=== PATIENT | female | born 1985 | race Caucasian/White ===

== ENCOUNTER → 2023-02-08 09:30 | Outpatient (BNVA) | payer BC, SELFPAY | PROVIDERS: Visit Provider Family Medicine | DX: R53.83 Other fatigue (principal) | CPT/HCPCS: 80053; 82306; 82607; 84443; 85025 ==

== ENCOUNTER → 2023-03-01 14:05 | Outpatient (BNVA) | payer BC, SELFPAY | PROVIDERS: Referring Provider Family Medicine; Visit Provider Nurse Practitioner Women's Health | DX: Z12.4 Encounter for screening for malignant neoplasm of cervix (principal) | CPT/HCPCS: 87624 ==

== ENCOUNTER 2023-03-14 13:54 | Outpatient (CLI) | payer BC, SELFPAY ==
--- NOTE | 2023-03-14 14:10 | MM_ITS ---
WS: [id number] BILATERAL 3D TOMOSYNTHESIS DIGITAL DIAGNOSTIC MAMMOGRAPHY WITH CAD CLINICAL INFORMATION: N63.20 - Unspecified lump in the left breast, unspecified... HISTORY: Palpable lumps LEFT breast COMPARISON: None. TECHNIQUE: Bilateral CC, MLO, and ML views. FINDINGS: The breasts are composed of heterogeneous fibroglandular density, which can limit the detection of sm all underlying mass lesions. Palpable markers LEFT breast upper-outer quadrant and near the 10:00 pos ition. Dense parenchymal tissue in the area of the palpable markers. Clustered calcifications RIGHT breast. Spot magnification views were obtained. Heterogeneous cluster calcifications are indeterminant. Recommend further evaluation with stereotactic guided biopsy. These are located in the upper inner quadrant RIGHT breast. Mid to posterior depth. Ultrasound LEFT breast is pending. RIGHT BREAST: TECHNIQUE: Ultrasound left breast focused area of concern. CLINICAL INFORMATION: N63.20 - Unspecified lump in the left breast, unspecified... FINDINGS: Ultrasound LEFT breast in the area of palpable concern 10:00 and 12:00 position. Small incidental cys t at the 12:00 position 1 cm from the nipple measuring 4 x 3 x 3 mm. This has a benign appearance. No other suspicious findings in the area of palpable concern. LEFT BREAST: MM/[place] [id number] IMPRESSION: BI-RADS 4 Suspicious Recommend further evaluation RIGHT breast calcifications with stereotactic do ded biopsy ULTRASOUND BREAST LEFT IMPRESSION: BI-RADS: 2-Benign FOLLOW UP: See Report RIGHT BREAST:
== END 2023-03-14 13:55 | disposition home or self-care (01) ==
PROVIDERS: Visit Provider Nurse Practitioner Women's Health
DX: N63.20 Unspecified lump in the left breast, unspecified quadrant (principal)
CPT/HCPCS: 76642; 77062; 87624; G0279

== ENCOUNTER → 2023-03-30 08:47 | Outpatient (BNVA) | payer BC, SELFPAY | PROVIDERS: Visit Provider Nurse Practitioner Women's Health | DX: R52 Pain, unspecified (principal) | CPT/HCPCS: 76830 ==

== ENCOUNTER → 2023-04-03 14:54 | Outpatient (BNVA) | payer BC, SELFPAY | PROVIDERS: PCP Family Medicine; Visit Provider Family Medicine | DX: R79.89 Other specified abnormal findings of blood chemistry (principal) | CPT/HCPCS: 82306 ==

== ENCOUNTER 2023-04-11 12:03 | Outpatient (CLI) | payer BC, SELFPAY ==
--- NOTE | 2023-04-11 13:00 | MM_ITS ---
WS: [id number] DIAGNOSTIC RIGHT DIGITAL TOMOSYNTHESIS MAMMOGRAPHY WITH CAD. HISTORY: Patient presents for stereotactic biopsy of the calcifications in the medial superior RIGHT breast. COMPARISON: 03/14/2023. Technique: Multiple breast views. Patient presents for stereotactic biopsy. The calcifications in the medial superior RIGHT breast are difficult to biopsy. There are large surrounding vessels which make the biopsy difficult. We attempte d numerous different access angles without success. With additional view these calcifications appear very lucent center and are probably benign. This is only a very small cluster of calcifications. Unable to perform stereotactic biopsy safely due to the large vessels in a similar location. Alternat yocasta evaluation includes needle localization and removal surgically or 6 month follow-up. As these gilmar cifications are likely benign consider six-month follow-up. MM/[place] [id number] IMPRESSION: BI-RADS: 3-Probably Benign FOLLOW UP: 6 Month Follow-up 1. Unsuccessful attempt at stereotactic biopsy of the calcifications in the RI GHT breast. Large surrounding vessels obscure the calcifications had make this an unsafe biopsy. 2. After additional imaging is calcifications do appear lucent centered and pr obably benign. 3. Consider six-month follow-up diagnostic imaging with magnification views of the RIGHT breast calcifications versus wire localization and surgical removal.
== END 2023-04-11 12:04 | disposition home or self-care (01) ==
PROVIDERS: PCP Family Medicine; Visit Provider Nurse Practitioner Women's Health
DX: R92.1 Mammographic calcification found on diagnostic imaging of breast (principal)
CPT/HCPCS: 19081; 77065

== ENCOUNTER 2023-06-14 13:59 | Emergency (ER) | payer BC, SELFPAY ==
[2023-06-14 14:04] VITALS: BP 124/74; PULSE 102; RESP 20; TEMP 36.6; O2SAT 99
--- NOTE | 2023-06-14 17:38 | ECG_ITS ---
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 Measurements Intervals Frost Rate: 69 P: 39 SC: 146 QRS: 70 QRSD: 77 T: 56 QT: 397 QTc: 427 Interpretive Statements SINUS RHYTHM NONSPECIFIC T-WAVE ABNORMALITY No previous ECG available for comparison Electronically Signed On 06-14-2023 20:55:27 CDT by Zuleika Johnston M.D. [id number]
--- NOTE | 2023-06-14 17:39 | XRR_ITS ---
PROCEDURE INFORMATION: Exam: XR Chest Exam date and time: 06/14/2023 5:43 PM Age: 37 years old Clinical indication: Pain; Chest pressure; Additional info: Chest pain TECHNIQUE: Imaging protocol: Radiologic exam of the chest. Views: 1 view. COMPARISON: CR XR chest 2V* [id number] 12/28/2016 4:43 PM FINDINGS: Lungs: No consolidation. Pleural spaces: No pleural effusion. No pneumothorax. Heart/Mediastinum: No cardiomegaly. Bones/joints: Unremarkable. XR/XR chest 1V portable [id number] IMPRESSION: 1. No acute abnormality demonstrated. 2. There is no interval change from the prior examination.
[2023-06-14 18:16] VITALS: BP 137/91; PULSE 73; RESP 17; O2SAT 100
--- NOTE | 2023-06-14 18:27 | ED_ITS ---
HPI - Chest Pain General: Chief Complaint: Chest Pain Stated Complaint: chest pain, sob Time Seen by Provider: 06/14/23 18:14 Source: patient Mode of arrival: ambulatory Limitations: no limitations History of Present Illness: 37-year-old female states she woke up at noon today with pain in the center of her chest. States been a pressure type pain she had some slight shortness of breath. She states it was worse earlier today its improving currently. She has no history of heart disease. She denies any vomiting or diarrhea she has had no cough or fever. Associated symptoms: Deny abdominal pain, dyspnea, fever(s), nausea or vomiting Review of Systems Const: Denies: fever(s), chills, body aches or change in appetite ENMT: Denies: throat pain or dental pain Card: Reports: chest pain Resp: Denies: dyspnea GI: Denies: abdominal pain, nausea, vomiting or diarrhea : Denies: dysuria Musc: Denies: neck pain or back pain Skin/Breast: Denies: rash Neuro: Denies: headache(s) PFSH ED PFSH: Medical History Dysmenorrhea suspected by symptoms; trialed Depo Lupron for 5-6 months; not much improvement and was expensive. Migraine with aura Surgical History History of 2 sections 2006-- due to Pre-E at term 2009-- repeat with tubal ligation at the same time History of tubal ligation (~2009) Family History Grandmother Breast cancer Great Maternal grandmother Other Cancer Cervical cancer Diabetes Denies family history of Colon cancer Ovarian cancer Chronic kidney disease (CKD) Hypertension Uterine cancer Thyroid disease Stroke Physical Exam Const: COMMON NORMALS: no acute distress, patient oriented x3 and healthy appearing HENMT: COMMON NORMALS: normocephalic and atraumatic HEAD & SCALP: normocephalic and atraumatic Neck/C-Spine: COMMON NORMALS: full ROM and supple Chest: COMMONS NORMALS: normal inspection of the chest and normal palpation of entire chest wall Resp: COMMON NORMALS: normal respiratory effort, No retractions, No use of accessory muscles and clear to auscultation bilaterally AUSCULTATION: clear to auscultation bilaterally Cardio: COMMON NORMALS: regular rate, regular rhythm and No murmurs present (Cardio) RATE: regular rate RHYTHM: regular rhythm GI: COMMON NORMALS: Normal to inspection, nondistended, normoactive bowel sounds present, Soft to palpation, non-tender and no masses PALPATION: Yes Soft to palpation Extremity: COMMON NORMALS: normal to inspection and full ROM Neuro: COMMON NORMALS: patient oriented x3, moves all extremities and no focal motor deficits Psych: COMMON NORMALS: mental status grossly normal, Normal thought process present and cooperative THOUGHT PROCESS: Normal thought process present Skin: COMMON NORMALS: no rashes or lesions noted and no wounds GENERAL SKIN EXAM: no rashes or lesions noted Course Vital Signs: Vital signs: Vital Signs Temperature 97.9 F 06/14/23 14:04 Pulse Rate 76 06/14/23 20:33 Respiratory Rate 16 06/14/23 20:33 Blood Pressure 109/78 06/14/23 20:33 Pulse Oximetry 97 06/14/23 20:33 Oxygen Delivery Me thod Room Air 06/14/23 18:16 MDM - Chest Pain Medical Decision Making Patient presents with chest pains atypical in nature troponin EKG x-ray and D- dimer all negative she feels improved here she is stable for discharge she will follow-up with PCP and return if worsening she understands agrees to plan. Medical Records I reviewed the patient's medical records. Lab Data I reviewed the patient's lab results. 06/14/23 19:32 06/14/23 19:32 Radiology Impressions Chest X-Ray 06/14/23 17:39 IMPRESSION: 1. No acute abnormality demonstrated. 2. There is no interval change from the prior examination. Laboratory Results WBC 8.34 10^3/uL (3.29-11.43) 06/14/23 19:32 RBC 4.11 10^6/uL (3.85-5.65) 06/14/23 19:32 Hgb 11.90 g/dL (11.27-16.99) 06/14/23 19:32 Hct 37.1 % (36-47) 06/14/23 19:32 MCV 90.3 fl (85-98) 06/14/23 19:32 MCH 29.0 pg (27-33) 06/14/23 19: MCHC 32.1 g/dL (30-55) 06/14/23 19: RDW 13.9 % (12.1-15.1) 06/14/23 19: Plt Count 415 10^3/cmm (157-399) H 06/14/23: MPV 9.5 fL (7.4-10.4) 06/14/23 19: Neut % (Auto) 59.8 % 06/14/23 19: Lymph % (Auto) 29.4 % 06/14/23 19: Anderson % (Auto) 7.3 % 06/14/23: Eos % (Auto) 2.8 % 06/14/23: Baso % (Auto) 0.5 % 06/14/23: Neut # (Auto) 4.99 10^3/uL (1.8-7.7) 06/14/23: Lymph # (Auto) 2.5 10^3/uL (0.8-4.8) 06/14/23 19: Anderson # (Auto) 0.6 10^3/uL (0.2-0.9) 06/14/23: Eos # (Auto) 0.2 10^3/uL (0.0-0.8) 06/14/23: Baso # (Auto) 0.0 10^3/uL (0.0-0.1) 06/14/23: Nucleated RBC % (auto) 0 % 06/14/23: Nucleated RBCs # 0.0 /100WBC 06/14/23 19: D-Dimer <= 0.27 ug/mLFEU (0-0.59) 06/14/23 19:32 Sodium 138 mmol/L (136-145) 06/14/23 19: Potassium 4.1 mmol/L (3.5-5.1) 06/14/23 19: Chloride 102 mmol/L (98-107) 06/14/23 19: Carbon Dioxide 25 mmol/L (22-29) 06/14/23 19: Anion Gap 15.1 (5-19) 06/14/23 19:32 BUN 8 mg/dL (6-20) 06/14/23 19:32 Creatinine 0.5 mg/dL (0.5-0.9) 06/14/23 19:32 GFR Calculation 140.4 mL/min (90-130) H 06/14/23 19:32 Glucose 89 mg/dL (65-115) 06/14/23 19:32 Calculated Osmolality 284 mOsm/kg (285-295) L 06/14/23 19:32 Calcium 9.4 mg/dL (8.5-10.5) 06/14/23 19:32 Total Bilirubin 0.4 mg/dL (0.15-1.2) 06/14/23 19:32 AST 17 U/L (0-32) 06/14/23 19:32 ALT 15 U/L (0-33) 06/14/23 19:32 Alkaline Phosphatase 94 U/L (35-105) 06/14/23 19:32 Troponin T Gen 5 ng/L Cancelled 06/14/23 19:32 Troponin T Baseline 6 ng/L (0-10) 06/14/23 19:32 Total Protein 7.2 g/dL (6.6-8.7) 06/14/23 19:32 Albumin 4.6 g/dL (3.5-5.2) 06/14/23 19:32 Globulin 2.6 g/dL (1.3-4.6) 06/14/23 19:32 Lipase 17 U/L (13-60) 06/14/23 19:32 EKG Data EKG 1: I personally reviewed and interpreted this EKG as follows: EKG interpretation date: 06/14/23 EKG interpretation time: 18:17 Interpretation: nsr hr [address] or t wave abnormalities qrs 77 qtc 416 Discharge Plan Discharge Patient Disposition: Home Clinical Impression: Chest pain Condition: Stable Prescriptions: No Action cholecalciferol (vitamin D3) 1,250 mcg (50,000 unit) tablet 1,250 mcg PO .weekly Qty: 12 0RF duloxetine [Cymbalta] 20 mg capsule,delayed release(DR/EC) 20 mg PO DAILY Qty: 30 11RF Discharge Orders: Discharge ED (Routine); Ordered 06/14/23 Ordered By: Winston Schrader Referrals: Shanon Saucedo MD [Primary Care Provider] - Discharge Diet: Advance as tolerated Discharge Activity: Resume usual activity Patient Instructions: Chest Pain (ED) Coding Level of Care Code ED 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
[2023-06-14 19:40] VITALS: BP 123/69; PULSE 72; O2SAT 97
[2023-06-14 19:43] LABS: Basophils % 0.5 %; Eosinophils # 0.2 10^3/uL (0.0-0.8); Eosinophils % 2.8 %; Hematocrit 37.1 % (36-47); Lymphocytes # 2.5 10^3/uL (0.8-4.8); Lymphocytes % 29.4 %; Mean Corpuscular HGB Conc 32.1 g/dL (30-55); Mean Corpuscular Volume 90.3 fl (85-98); Mean Platelet Volume 9.5 fL (7.4-10.4); Monocytes # 0.6 10^3/uL (0.2-0.9); Monocytes % 7.3 %; Neutrophils # 4.99 10^3/uL (1.8-7.7); Neutrophils % 59.8 %; Nucleated Red Blood Cells % 0 %; Platelet Count 415 10^3/cmm (157-399); Red Blood Count 4.11 10^6/uL (3.85-5.65); Red Cell Distribution Width 13.9 % (12.1-15.1); White Blood Count 8.34 10^3/uL (3.29-11.43)
[2023-06-14 20:01] LABS: D Dimer <= 0.27 ug/mLFEU (0-0.59)
[2023-06-14 20:05] LABS: Troponin(5th) Baseline 6 ng/L (0-10)
[2023-06-14 20:06] VITALS: RESP 18
[2023-06-14] MEDS: ondansetron 2 mg/ML SDV 2 mL 4 MG IVP (20:06)
[2023-06-14] MEDS: morphine 4 mg/mL SDV 1 mL IVP (20:06)
[2023-06-14 20:07] LABS: Alanine Aminotransferase 15 U/L (0-33); Albumin Level 4.6 g/dL (3.5-5.2); Alkaline Phosphatase 94 U/L (35-105); Anion Gap 15.1 (5-19); Aspartate Amino Transferase 17 U/L (0-32); Blood Urea Nitrogen 8 mg/dL (6-20); Calcium 9.4 mg/dL (8.5-10.5); Carbon Dioxide 25 mmol/L (22-29); Chloride 102 mmol/L (98-107); Creatinine Clr Calc Pharmacy 146.6844; Globulin 2.6 g/dL (1.3-4.6); Glomerular Filtration Rate 140.4 mL/min (90-130); Glucose 89 mg/dL (65-115); Lipase 17 U/L (13-60); Osmolality Calculated 284 mOsm/kg (285-295); Potassium 4.1 mmol/L (3.5-5.1); Sodium 138 mmol/L (136-145); Total Bilirubin 0.4 mg/dL (0.15-1.2); Total Protein 7.2 g/dL (6.6-8.7)
[2023-06-14 20:33] VITALS: BP 109/78; PULSE 76; RESP 16; O2SAT 97
== END 2023-06-14 20:38 | disposition home or self-care (01) ==
PROVIDERS: Nurse Practitioner Family; Emergency Provider Emergency Medicine; PCP Family Medicine
DX: R07.9 Chest pain, unspecified (principal)
CPT/HCPCS: 71045; 80053; 83690; 84484; 85025; 85378; 93005; 96374; 96375; 99285; J2270; J2405

== ENCOUNTER → 2023-06-22 15:18 | Outpatient (BNVA) | payer BC, SELFPAY | PROVIDERS: PCP Family Medicine; Visit Provider Family Medicine | DX: R79.89 Other specified abnormal findings of blood chemistry (principal) | CPT/HCPCS: 82306 ==

== ENCOUNTER 2023-10-10 08:45 | Outpatient (CLI) | payer BC, SELFPAY ==
--- NOTE | 2023-10-10 09:30 | MM_ITS ---
WS: [id number] DIAGNOSTIC RIGHT DIGITAL TOMOSYNTHESIS MAMMOGRAPHY WITH CAD. HISTORY: 6-month follow-up calcifications RIGHT breast. COMPARISON: 03/14/2023, 04/11/2023 Technique: CC, MLO and ML views. Magnification views RIGHT CC and MLO. Breast composition: The breasts are heterogeneously dense, which may obscure small masses. Reidentifi ed are the calcifications in the medial superior RIGHT breast. These are lucent centered calcificatio ns without increase in size or number. Very benign in appearance. No additional abnormalities are heather ntified. IMPRESSION: MM/[place] [id number] BI-RADS: 3-Probably Benign FOLLOW UP: 6 Month Follow-up Patient to return in 6 months for annual mammogram. Additional magnification v iews of the RIGHT breast calcifications should be performed at that time.
== END 2023-10-10 08:46 | disposition home or self-care (01) ==
LOC: RAD 08:45
PROVIDERS: PCP Family Medicine; Visit Provider Nurse Practitioner Women's Health
DX: R92.1 Mammographic calcification found on diagnostic imaging of breast (principal)
CPT/HCPCS: 77061; G0279

== ENCOUNTER 2024-04-15 08:50 | Outpatient (CLI) | payer BC, SELFPAY ==
--- NOTE | 2024-04-15 09:30 | MM_ITS ---
WS: [id number] VIEWS: MLO, CC, and ML views both breasts. 3D digital tomosynthesis is also included in this exam. C ompression spot images of the RIGHT breast are also included in the study. Comparison made with prior exam of 10/10/2023.. Findings: There was no sign of mass, architectural distortion or suspicious calcification in either breast. Sta ble appearing benign calcifications in the medial superior RIGHT breast. These are probably in the sk in. The breasts are extremely dense which lowers the sensitivity of mammography. MM/[place] [id number] Impression: BI-RADS: 2-Benign finding. FOLLOW-UP: 1 Year Follow-up This mammogram was also analyzed by the Computer Aided Detection System R2 Imag e Secondary Art Teacher.
== END 2024-04-15 08:51 | disposition home or self-care (01) ==
LOC: RAD 08:51
PROVIDERS: PCP Family Medicine; Visit Provider Nurse Practitioner Women's Health
DX: R92.1 Mammographic calcification found on diagnostic imaging of breast (principal); R92.333 Mammographic heterogeneous density, bilateral breasts
CPT/HCPCS: 77062; G0279

== ENCOUNTER → 2024-05-17 16:02 | Outpatient (BNVA) | payer BC, SELFPAY | PROVIDERS: PCP Family Medicine; Visit Provider Nurse Practitioner Women's Health | DX: N92.0 Excessive and frequent menstruation with regular cycle (principal) | CPT/HCPCS: 84443; 85025 ==

== ENCOUNTER → 2024-06-03 14:05 | Outpatient (BNVA) | payer BC, SELFPAY | PROVIDERS: PCP Family Medicine; Visit Provider Obstetrics & Gynecology | DX: N92.0 Excessive and frequent menstruation with regular cycle (principal); N92.6 Irregular menstruation, unspecified | CPT/HCPCS: 83001; 84146 ==

== ENCOUNTER → 2024-06-13 15:48 | Outpatient (BNVA) | payer BC, SELFPAY | PROVIDERS: PCP Family Medicine; Visit Provider Obstetrics & Gynecology | DX: R10.2 Pelvic and perineal pain (principal) | CPT/HCPCS: 76830 ==

== ENCOUNTER 2024-11-25 10:06 | Day surgery (SDC) | payer OTHER, BC, SELFPAY ==
[2024-11-18 10:22] LABS: Add Urine Microscopic? NO
[2024-11-18 10:26] LABS: Basophils % 0.5 %; Eosinophils # 0.2 10^3/uL (0.0-0.8); Eosinophils % 2.6 %; Hematocrit 38.4 % (36-47); Lymphocytes % 27.1 %; Mean Corpuscular HGB Conc 31.3 g/dL (30-55); Mean Corpuscular Hemoglobin 27.8 pg (27-33); Mean Corpuscular Volume 88.9 fl (85-98); Mean Platelet Volume 9.3 fL (7.4-10.4); Monocytes # 0.6 10^3/uL (0.2-0.9); Monocytes % 8.1 %; Neutrophils # 4.55 10^3/uL (1.8-7.7); Neutrophils % 61.3 %; Nucleated Red Blood Cells % 0 %; Platelet Count 444 10^3/cmm (157-399); Red Blood Count 4.32 10^6/uL (3.85-5.65); Red Cell Distribution Width 14.5 % (12.1-15.1); White Blood Count 7.42 10^3/uL (3.29-11.43)
[2024-11-18 10:41] LABS: Bilirubin Urine Negative (Negative); Blood Urine Negative (Negative); Glucose Urine UA Negative (Normal); Ketones Urine Negative (Negative); Leukocyte Esterase Urine Negative (Negative); Nitrate Urine Negative (Negative); Protein Urine Negative (Negative); Specific Gravity, Urine 1.011 (1.005-1.030); Urine Appearance Clear (CLEAR); Urine Color Yellow (Yellow); Urobilinogen Urine 0.2 mg/dL (Negative)
[2024-11-18 10:44] LABS: Alanine Aminotransferase 8 U/L (0-33); Alkaline Phosphatase 106 U/L (35-105); Anion Gap 17.1 (5-19); Aspartate Amino Transferase 13 U/L (0-32); Blood Urea Nitrogen 8 mg/dL (6-20); Calcium 9.4 mg/dL (8.5-10.5); Carbon Dioxide 23 mmol/L (22-29); Chloride 101 mmol/L (98-107); Globulin 3.5 g/dL (1.3-4.6); Glomerular Filtration Rate 180.6 mL/min (90-130); Glucose 111 mg/dL (65-115); Osmolality Calculated 283 mOsm/kg (285-295); Potassium 4.1 mmol/L (3.5-5.1); Sodium 137 mmol/L (136-145); Total Bilirubin 0.2 mg/dL (0.15-1.2); Total Protein 7.5 g/dL (6.6-8.7)
[2024-11-18 10:59] LABS: Add Urine Culture? No; Charge for UA Resulting for Rev
[2024-11-25] VITALS (8 sets, daily range): BP systolic 111–139; BP diastolic 64–98; PULSE 77–94; RESP 12–17; TEMP 36.2–36.5; O2SAT 96–100; BMI 28.3
[2024-11-25] MEDS: scopolamine 1 mg PATCH 1 PATCH TRANSDERMA (10:46)
[2024-11-25] MEDS: sodium chloride 0.9% 1,000 ML 30 ML IV (11:05)
[2024-11-25 11:11] LABS: OR HCG Qualitative Urine Negative (Negative)
--- NOTE | 2024-11-25 12:00 | P.ANESASSM_ITS ---
Pre-Anesthetic Assessment Height/Weight: Height 1.65 m Weight 77.111 kg Temp Pulse Resp BP Pulse Ox O2 Del Method 97.1 F L 92 16 139/98 99 Room Air 11/25/24 10:34 11/25/24 10:34 11/25/24 10:34 11/25/24 10:34 11/25/24 10:34 11/25/24 10:37 Preop Diagnosis: pelvic pain Operation Date: 11/25/24 12:00 Proposed Procedures p Laparoscopy Diagnostic 44117,R10.2, G89.29(Not Applicable) - Nicola Alves MD Familial anesthetic complications: None Was Beta Bharti taken within 24 hours: N/A Was Clonidine taken within 24 hours: N/A Last intake: Intake Last Liquid Date 11/24/24 Last Liquid Time 20:00 Last Solid Date 11/24/24 Last Solid Time 23:30 Social Tobacco, No alcohol and No tobacco vapes Exam alert, oriented x 3, clear to auscultation bilaterally and regular rate & rhythm Airway Dentition: other (mutiple missing, extensive decay, all discolored and black, none loose) Anesthetic Plan ASA status: 2 Anesthesia: General Risk of > 500 ml blood loss (7ml/kg in children): No Medications/Allergies Home Medications Medication Instructions Recorded Confirmed Last Taken Type ibuprofen 800 mg tablet 800 mg PO TID #90 tabs 06/09/24 11/25/24 11/24/24 Rx norgestimate 0.25 mg-ethinyl 1 tab PO DAILY #84 tabs 06/09/24 11/25/24 11/24/24 Rx estradiol 35 mcg tablet (Sprintec (28)) diphenhydramine HCl 25 mg tablet 25 mg PO TID PRN Allergic Symptoms 11/18/24 11/25/24 11/24/24 History (Benadryl Allergy) duloxetine 20 mg capsule,delayed 20 mg PO DAILY 11/18/24 11/25/24 11/24/24 History release Allergies Allergy/AdvReac Type Severity Reaction Status Date / Time No Known Allergies Allergy Verified 11/18/24 07:40 Current Medications Generic Name Dose Route Start Last Admin Trade Name Freq PRN Reason Stop Dose Admin Sodium Chloride 1,000 mls @ 30 mls/hr 11/25/24 10:30 11/25/24 11:05 Sodium Chloride 0.9% IV 11/26/24 10:29 30 mls/hr .Q24H CHUY Administration PFSH Anesthesia Medical History Dysmenorrhea Migraine with aura Surgical History History of tubal ligation (~2009) History of 2 sections 2006-- due to Pre-E at term 2009-- repeat with tubal ligation at the same time Family History Grandmother Breast cancer Great Maternal grandmother Other Cancer Cervical cancer Diabetes Denies family history of Colon cancer Ovarian cancer Chronic kidney disease (CKD) Hypertension Uterine cancer Thyroid disease Stroke Social History Smoking and tobacco/nicotine status: never used tobacco/nicotine Data Anesthesia 11/18/24 10:14 11/18/24 10:14 Cardiac Studies: 2 No Data to Display
--- NOTE | 2024-11-25 12:07 | W.PM.OPSUD ---
Surgery/Procedure H&P Update DATE OF PROCEDURE: November 25, 2024 DATE H&P PERFORMED: 11/18/24 H&P UPDATE INFORMATION: I have reviewed H&P completed within last 30 days, I have examined patient prior to procedure and No changes to prior documentation PREOP DIAGNOSIS: pelvic pain PLANNED PROCEDURE: Operation Date: 11/25/24 12:00 Proposed Procedures p Laparoscopy Diagnostic 03762,R10.2, G89.29(Not Applicable) - Nicola Alves MD
[2024-11-25] MEDS: ceFAZolin 2,000 mg SDV 2000 MG IVP (12:51)
[2024-11-25] MEDS: BUPivacaine 0.5% INJ 30 mL XX (13:32)
--- NOTE | 2024-11-25 14:01 | P.BOP_ITS ---
Date of Procedure: 11/25/24 Surgeon: Nicola Alves MD [facility] Ambulatory Specialists(s): Procedure(s) performed: Diagnostic laparoscopy, lysis of adhesions Findings of the procedure(s): Multiple pelvic adhesions, omental adhesions to anterior abdominal wall Estimated blood loss: 5 Specimen(s) removed: Post-operative diagnosis: Status post diagnostic laparoscopy and lysis of adhesions
--- NOTE | 2024-11-25 14:02 | P.OP_ITS ---
Operative Report Date of procedure: November 25, 2024 Pre-op diagnosis: Chronic pelvic pain Dyspareunia Post-op diagnosis: same Post-op diagnosis: Multiple pelvic adhesions Procedure done: Diagnostic laparoscopy Lysis of adhesions Surgeon: Nicola Alves MD Estimated blood loss (mL): 5 IV fluids (mL): 1,000 Urine output (mL): 25 Procedure: After informed consent, the patient was taken to the operating room where general anesthesia was administered. The patient was examined under anesthesia and found to have a normal uterus with normal adnexa. She was placed in the dorsal lithotomy position and prepped and draped in sterile fashion. Pre- Procedure Time-Out verifying the correct patient identity, correct procedure verified with consent, correct site and side, correct patient position, availability of correct implants and any special equipment or requirements was performed and acknowledge by the OR team. A weighted speculum was placed in the vagina, and the anterior lip of cervix was grasped with the single toothed tenaculum. A uterine manipulator was advanced into the endocervical. Tenaculum was removed after uterine manipulator was secured. The speculum was removed from the vagina. An intraumbilical incision was made with a scalpel. While tenting up on the abdomen, a Verres needle with sleeve was admitted into the intra-abdominal cavity. A saline drop test was performed and noted to be within normal limits. Pneumoperitoneum was attained with 4 liters of carbon dioxide. The Verres needle was removed. A 5 mm trocar and sleeve were admitted into the abdomen and laparoscopic confirmation of location was achieved, A second incision was made 3 cm above the symphysis pubis, and a 5 mm trocar and sleeve were admitted into the abdomen under direct, laparoscopic visualization without complication. A survey revealed omental adhesions to anterior abdominal wall. The pelvic survey shows omental adhesions to left cornea of uterus, peritoneal bladder adhesions to lower uterine segment, peritoneal adhesions to right cornea. Lysis of adhesions was performed with the 5 mm LigaSure sealing device without complications. A 5 mm blunt probe was advanced through the second trocar sleeve, and light manipulation of ovaries and uterus to assess the posterior aspects was performed. Carbon dioxide was allowed to escape from the abdomen. The instruments were removed, and skin cover with a bandage. The instruments were removed from the vagina, and excellent hemostasis was noted. The patient tolerated the procedure well, and sponge, lap and needle count were correct times two. The patient taken to the recovery room in good condition.
[2024-11-25] MEDS: HYDROcodone-acetaminophen 5-325 mg Tablet 1 TAB PO (14:46)
--- NOTE | 2024-11-25 15:15 | ANE.PACU2 ---
Inpatient post-anesthesia follow up: Airway intact: Yes Vital signs: Temperature 97.6 F Pulse Rate 77 Respiratory Rate 16 Blood Pressure 115/75 Pulse Oximetry 100 Oxygen Delivery Me thod Room Air Oxygen Flow Rate Fraction of Inspir ed Oxygen Hydration adequate: Yes Nausea and vomiting: No Pain level: 1 Mental status: Baseline
== END 2024-11-25 15:15 | disposition home or self-care (01) ==
PROVIDERS: PCP Family Medicine; Visit Provider Obstetrics & Gynecology
PROC: (CPT 49320; principal; 2024-11-25 12:00)
PROC: (CPT 49320; 2024-11-25 12:00)
DX: R10.2 Pelvic and perineal pain (principal); N94.10 Unspecified dyspareunia; N73.6 Female pelvic peritoneal adhesions (postinfective); G89.29 Other chronic pain; Z79.899 Other long term (current) drug therapy
CPT/HCPCS: 49320; 36415; 80053; 81003; 81025; 85025; 86850; 86900; J0690; J1885; J2405; J2704; J3490; J7030

== ENCOUNTER → 2025-02-10 10:23 | Outpatient (BNVA) | payer OTHER, BC, SELFPAY | PROVIDERS: PCP Family Medicine; Visit Provider Family Medicine | DX: R60.9 Edema, unspecified (principal) | CPT/HCPCS: 80053; 83880 ==

== ENCOUNTER → 2025-02-20 07:22 | Outpatient (BNVA) | payer OTHER, BC, SELFPAY | PROVIDERS: PCP Family Medicine; Visit Provider Family Medicine | DX: Z79.899 Other long term (current) drug therapy (principal) | CPT/HCPCS: 80048 ==

== ENCOUNTER 2025-05-28 07:45 | Outpatient (CLI) | payer SELFPAY ==
--- NOTE | 2025-05-28 08:20 | MM_ITS ---
WS: [id number] BILATERAL SCREENING DIGITAL TOMOSYNTHESIS MAMMOGRAM WITH CAD HISTORY: Z12.31 - Encounter for screening mammogram for malignant ... COMPARISON: 04/15/2024, 10/10/2023, 03/14/2023 Bilateral CC and MLO views with tomosynthesis and synthetic mammography submitted. Computer aided detection analyzed. Breast composition: The breasts are heterogeneously dense, which may obscure small masses. No suspicious masses, microcalcifications or architectural distortion. Stable cluster of calcifications upper medial RIGHT breast. These calcifications have lucent centers and has been present on prior studies. There are additional scattered skin calcifications in the LEFT breast. MM/MM scr tomosynthesis [id number] IMPRESSION: BI-RADS: 2 - Benign FOLLOW UP: 1 Year Follow-up
== END 2025-05-28 07:46 | disposition home or self-care (01) ==
LOC: RAD 07:47
PROVIDERS: Visit Provider Nurse Practitioner Women's Health
DX: Z12.31 Encounter for screening mammogram for malignant neoplasm of breast (principal); R92.333 Mammographic heterogeneous density, bilateral breasts
CPT/HCPCS: 77063; 77067

== ENCOUNTER → 2025-06-05 08:06 | Outpatient (BNVA) | payer BC, SELFPAY | PROVIDERS: Visit Provider Nurse Practitioner Women's Health | DX: Z12.4 Encounter for screening for malignant neoplasm of cervix (principal) | CPT/HCPCS: 87624 ==